=== PATIENT | male | born 2005 | race Hispanic/Latino ===

== ENCOUNTER 2025-04-03 07:26 | Emergency (ER) | payer OTHER, SELFPAY ==
[2025-04-03 08:18] LABS: #Basophils 0.05 10x3/uL (0.0-0.2); #Eosinophils 0.13 10x3/uL (0.0-0.7); #Monocytes 0.63 10x3/uL (0.11-0.59); #Neutrophils 5.50 10x3/uL (1.40-6.50); %Basophils 0.6 % (0.0-1.0); %Eosinophils 1.6 % (0.0-10.0); %Lymphocytes 20.0 % (21.0-51.0); %Monocytes 7.9 % (0.0-10.0); %Neutrophils 68.8 % (42.0-75.0); Hematocrit 53.1 % (42.0-52.0); Hemoglobin 18.3 g/dL (14.0-18.0); Mean Corpuscular Hemoglobin 31.4 pg (27.0-31.0); Mean Corpuscular Volume 91.1 fL (78.0-98.0); Platelet Count 250 10x3/uL (130-400); Red Blood Cell (RBC) Count 5.83 mill/uL (4.70-6.10); White Blood Cell (WBC) Count 8.00 10x3/uL (4.8-10.8)
[2025-04-03 08:36] LABS: ALT (SGPT) 24 U/L (Less than 45); AST (SGOT) 43 U/L (11-34); Albumin 4.7 g/dL (3.1-4.5); Alkaline Phosphatase 82 U/L (40-110); Anion Gap 14 mmol/L (10-20); BUN (Urea Nitrogen) Less than 4 mg/dL (8.9-20.6); Bilirubin, Total 0.4 mg/dL (0.3-1.2); Calc. Creatinine Clearance 0 mL/min (70-130); Calcium 9.1 mg/dL (7.8-10.44); Carbon Dioxide 24 mmol/L (22-29); Chloride 113 mmol/L (98-107); Globulin 2.1 g/dL (2.4-3.5); Glucose 99 mg/dL (70-105); Potassium 3.7 mmol/L (3.5-5.1); Sodium 147 mmol/L (136-145)
[2025-04-03] MEDS ORDERED: Boostrix 0.5 ML (Tdap) VIAL (>/=7 yrs of age) ONE (08:43)
[2025-04-03] MEDS ORDERED: Iopamidol-370 76% 500 ML MDV (1 ML CHARGE) ONE (10:27)
== END 2025-04-03 10:10 | disposition home or self-care (01) ==
LOC: ERS 07:26 → EEVIPCON 07:26 → ERS 10:10
DX: Z02.79 Encounter for issue of other medical certificate (principal); Q07.00 Arnold-Chiari syndrome without spina bifida or hydrocephalus; F90.9 Attention-deficit hyperactivity disorder, unspecified type; Z23 Encounter for immunization
CPT/HCPCS: 70450; 71260; 72125; 74177; 80053; 85025; 90471; 90715; Q9967